=== PATIENT | male | born 1960 | race African-American/Black ===

== ENCOUNTER → 2021-08-23 | Day surgery (SDC) | payer MEDICARE, OTHER ==
[~2021-08-23] VITALS: Ht 170.2 cm; Wt 94.8 kg
[~2021-08-23] MED LIST: CETIRIZINE HCL5 MG PO; PRILOSEC20 MG PO; PRINIVIL20 MG PO; RESTORIL30 MG PO; VITAMIN D310 MC4 PO
[2021-08-23 12:48] LABS: HGB 15.7 g/dl (13.2-18.0); MCH 28.1 pg (25.0-31.0); MCHC 32.7 g/dL (32.0-36.0); MCV 85.9 fL (78.0-100.0); RBC 5.59 M/uL (4.70-6.00); RDW 13.9 % (11.5-14.0)
[2021-08-23 13:40] LABS: BUN/CREAT RATIO (CALC) 7.7 RATIO; CREATININE 0.91 mg/dL (0.67-1.17); POTASSIUM 4.2 mmol/L (3.5-5.1)
== END | disposition home or self-care (01) ==
LOC: FAS 12:03
PROVIDERS: Anesthesiology; Legal Medicine
DX: G56.01 Carpal tunnel syndrome, right upper limb (principal); Z98.84 Bariatric surgery status; Z88.6 Allergy status to analgesic agent; Z88.5 Allergy status to narcotic agent; Z88.8 Allergy status to other drugs, medicaments and biological substances
CPT/HCPCS: 36415; 80048; 93005; J0690; J2250; J2704; J2795; J3010; J7120